=== PATIENT | female | born 1940 | race Caucasian/White ===

== ENCOUNTER 2020-03-23 13:48 | Emergency (ER) | payer OTHER ==
[2020-03-23 13:56] VITALS: TEMP 98.5; BMI 23.9
--- NOTE | 2020-03-23 14:59 | PDOC ---
History of Present Illness - General Chief Complaint: Revisit, Lab Variance Stated Complaint: POTASSIUM LOW Time Seen by Provider: 03/23/20 14:17 History Source: Patient Exam Limitations: No Limitations - History of Present Illness Initial Comments: 03/23/20 14:53 80F PMH HTN sent in from PCP for evaluation of lab abnormalities. Pt had bowel prep yesterday and was scheduled to have colonscopy this AM but canceled bc tachycardia. Was then told to follow up with PCP who did labs and EKG, subsequently found to have critically low potassium and ?elevated trop. Pt is asymptomatic and has no complaints. Denies f/c, cp/sob, n/v. Allergies reviewed w/ patient. Pt is on HCTZ. Past History - Medical History Allergies/Adverse Reactions: Allergies Allergy/AdvReac Type Severity Reaction Status Date / Time codeine AdvReac Verified 03/23/20 13:53 Penicillins AdvReac Verified 03/23/20 13:53 Home Medications: Ambulatory Orders Apremilast [Otezla] 30 mg PO BID 03/21/20 Hydrochlorothiazide 25 mg PO DAILY 03/21/20 L.acidoph,Paracasei, B.lactis [Probiotic] 1 each PO DAILY 03/21/20 Loratadine [Claritin] 10 mg PO DAILY 03/21/20 Anemia: No Asthma: No Cancer: No Cardiac Disorders: (LBBB) CVA: No COPD: No CHF: No Dementia: No Diabetes: No GI Disorders: Yes (COLON POLYPS - SESSILE SERRATED ADENOMAS, DIVERTICULOSIS, H EMORRHIODS) HTN: Yes Seizures: No Thyroid Disease: No - Surgical History Cholecystectomy: Yes - Reproductive History Is Patient Now?: No - Psycho-Social/Smoking History Smoking History: Never smoked Have you smoked in the past 12 months: No If you are a former smoker, when did you quit?: 40 YRS AGO - Substance Abuse Hx (Audit-C & DAST Scrn) How often the patient has a drink containing alcohol: Monthly or less How often the patient has six or more drinks on one occasion: Less than monthly Score: In Men: 4 or > Positive; In Women: 3 or > Positive: 2 Screen Result (Pos requires Nsg. Audit-10AR): Negative Review of Systems - Review of Systems Comments:: 03/23/20 22:23 CONSTITUTIONAL: Denies F / C HEENT: Denies headache, lightheadedness, dizziness, changes in vision / hearing, diplopia, blurry vision, sore throat, rhinorrhea RESP: Denies SOB, cough, orthopnea, ARELLANO CARD: Denies chest pain, palpitations GI: Denies N / V, abdominal pain, inability to tolerate PO : Denies dysuria, hematuria, frequency NEURO: Denies numbness, tingling, weakness MSK: Denies back pain SKIN: Denies rashes *Physical Exam - Vital Signs Last Vital Signs Temp Pulse Resp BP Pulse Ox 98.5 F 79 18 161/75 100 03/23/20 13:55 03/23/20 13:55 03/23/20 13:55 03/23/20 13:55 03/23/20 13:55 - Physical Exam 03/23/20 22:24 GEN: Well appearing, NAD, comfortable. AAOx3. HEENT: NC/AT, EOMI, PERRL. No facial asymmetry. Moist mucous membranes. Normal voice. Supple neck w/ FROM. CV: S1/S2, RRR, no m/r/g LUNG: CTAB, no wheezes, crackles, rales, rhonchi. GI: Soft, ndnt, +BS, no guarding, no rebound. No masses. Neg CVAT b/l. MSK: 2+ distal pulses. No LE edema. No obvious deformities of all extremities. SKIN: Warm, dry, no rashes appreciated. PSYCH: Normal mood and affect. pleasant. NEURO: Moving all extremities well. ED Treatment Course - LABORATORY CBC & Chemistry Diagram: 03/23/20 14:20 03/23/20 14:20 Medical Decision Making - Medical Decision Making 03/23/20 22:24 03/23/20 14:53 80F PMH HTN sent in by PCP for critical hypokalemia and possibly elevated trop. Had colonscopy canceled today. Pt has been asymptomatic. She is comfortable with HR on monitor of 80-90s. Will check labs and replete K as necessary. Pt is on HCTZ, a possible etiology for hypoK. Will eval for ACS and other metabolic abnormalities. 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 EKG 1418 demonstrating HR 118 in sinus tachycardia with Left ax deviation and LBBB which is unchanged from EKG obtained earlier this morning. When compared to EKG complete on 11/28/2009, retrieved on MUSE, there are new PACs but LBBB and LAD unchanged. 03/23/20 15:36 lab reviewed K 3.0 trop neg will replete K will repeat EKG 03/23/20 15:57 HR now 70-80s 03/23/20 16:[address] Cuevas at [facility] but no answer repeat EKG 1608 demonstrating resolved tachycardia, HR 80, LBBB, Left axis, sinus with PACs will DC home w/ close PCP f/u and cardiology f/u; return precautions 03/23/20 22:21 shortly before patient discharge, I discussed with Dr. Cuevas's office nurse senior benefits manager regarding findings and follow up plan. Message would be relayed to Dr. Cuevas who could call back with any questions. Appointment scheduled for Thursday; urged cardiology setup and follow up. Plan discussed with patient who was amenable and expressed understanding. Question and concerns were addressed. Return precautions provided. Discharge - Discharge Information Problems reviewed: Yes Clinical Impression/Diagnosis: Left bundle branch block (LBBB) on electrocardiogram, Hypokalemia Condition: Improved Disposition: HOME - Admission No - Follow up/Referral Referrals: Kyle Gomez MD [Primary Care Provider] - Finn Mancini MD [Staff Physician] - Rajendra Cuevas [Non Staff, Medical] - Call tomorrow - Patient Discharge Instructions Additional Instructions: Please follow up with your Primary Care Doctor in the next 3-5 days regarding this Emergency visit. We spoke to Dr. Cuevas's office and you have an appointment scheduled for Thursday03/26/20 at 3pm. Please call and confirm. We repleted your low potassium. Speak to your doctor regarding possible medication induced potassium loss. You need to follow up with Cardiology in the next 5-10 days. You can speak to your primary care doctor for a [facility] Telephone Supervisor. We are referring you to one of our cardiologists too. Continue taking your medications as prescribed. Return to the Emergency Department if you experience any new or concerning symptoms including but not limited to: - chest pain - palpitations - shortness of breath - Post Discharge Activity
[2020-03-23 15:03] LABS: BASO % 0.4 % (0-2.0); EOS % 0.7 % (0-4.5); HEMOGLOBIN 14.1 GM/dL (10.7-15.3); LYMPH % 19.9 % (8-40); MCH 28.9 pg (25.7-33.7); MCHC 33.5 g/dl (32.0-36.0); MEAN PLT VOLUME 9.3 fl (7.5-11.1); MONO % 7.4 % (3.8-10.2); NEUT % 71.6 % (42.8-82.8); PLATELET COUNT 214 K/MM3 (134-434); RBC 4.88 M/mm3 (3.60-5.2); WHITE BLOOD COUNT 7.2 K/mm3 (4.0-10.0)
--- NOTE | 2020-03-23 15:12 | PDOC ---
Attending Attestation - Resident Resident Name: DionicioJoão - ED Attending Attestation I have performed the following: I have examined & evaluated the patient, The case was reviewed & discussed with the resident, I agree w/resident's findings & plan - HPI HPI: 03/23/20 15:11 80F PMH HTN sent in from PCP for evaluation of lab abnormalities. Pt had bowel prep yesterday and was scheduled to have colonscopy this AM but canceled bc tachycardia. Was then told to follow up with PCP who did labs and EKG, subsequently found to have critically low potassium and ?elevated trop. Pt is asymptomatic and has no complaints. Denies f/c, cp/sob, n/v. Allergies reviewed w/ patient. Pt is on HCTZ. - Physicial Exam PE: 03/23/20 15:11 Agree with the resident's HPI and PE as documented in the electronic medical record. NAD, well appearing, EOMI, PERRL, nl conjunctiva, anicteric; neck supple. lungs clear, RRR, abdomen soft nontender. no rebound, guarding. Back nontender. BAUER x4, no focal neuro deficits. No peripheral edema. normal color for ethnicity, WWP. - Medical Decision Making 03/23/20 15:12 Vital Signs Temp Pulse Resp BP Pulse Ox 98.5 F 79 18 161/75 100 03/23/20 13:55 03/23/20 13:55 03/23/20 13:55 03/23/20 13:55 03/23/20 13:55 03/23/20 15:47 Vital signs reviewed, mildly hypertensive, intermittent tachy, but remains stable in the range of 80-95 no symptoms reviewed prior labs from outpatient, no trop done, labs with mild hypoK will replete given IVF remainder of labs wnl, no anemia esme po intake and potassium , no n/v, no abdominal pain. stable ekg compared to 2009 with LBBB, nonspecific t wave abnormalities, neg for sgarbossa's criteria. also without cp or sob, unlikely ACS or cardiac etiology transfer tech call to her primary doctor at [facility], Dr Cuevas with clinical update and ekg 03/23/20 16:44 Pt to be discharged in stable condition. Patient and family made aware of clinical impression, treatment recommendations and disposition plan, return precautions discussed (including but not limited to new or persistent/worsening symptoms, pain, fevers, or signs of infection, chest pain, respiratory distress, inability to tolerate oral intake, dehydration, syncope, or neurologic changes). Follow up with PMD and/or specialist as recommended, follow up information provided, take medications as instructed for duration of time. continue with supportive care, avoid triggers and precipitants. All questions answered to patient's satisfaction and expressed understanding and comfort with this. At the time of discharge, the patient is alert, clinically improved, tolerating po and verbalizes understanding of instructions, satisfied with the care received and felt comfortable with the plan. Patient does not suffer from an acute life- threatening medical condition at this time and is safe for outpatient follow- up. Heart Score/ECG Review #1 ECG reviewed & interpreted by me at: 14:20 General ECG Interpretation: Sinus Rhythm, Normal Rate 03/23/20 15:46 EKG sinus tachycardia 118 bpm, left bundle branch block is noted, wide QRS, appropriate discordant changes, no concordant changes., Nonspecific T wave abnormalities - similar to prior ekg 14:18 #2 ECG reviewed & interpreted by me at: 16:10 General ECG Interpretation: Sinus Rhythm, Normal Rate, Normal Intervals Compared to previous ECG there are: No significant change 03/23/20 16:15 EKG normal sinus rhythm 80 bpm with LBBB, neg sgarbossa's criteria no discordant changes above 5mm in precordial leads, no concordant changes. Discharge - Discharge Information Problems reviewed: Yes Clinical Impression/Diagnosis: Left bundle branch block (LBBB) on electrocardiogram, Hypokalemia Condition: Improved Disposition: HOME - Admission No - Follow up/Referral Referrals: Finn Mancini MD [Staff Physician] - Kyle Gomez MD [Primary Care Provider] - Rajendra Cuevas [Non Staff, Medical] - Call tomorrow - Patient Discharge Instructions Additional Instructions: Please follow up with your Primary Care Doctor in the next 3-5 days regarding this Emergency visit. We spoke to Dr. Cuevas's office and you have an appointment scheduled for Thursday03/26/20 at 3pm. Please call and confirm. We repleted your low potassium. Speak to your doctor regarding possible medication induced potassium loss. You need to follow up with Cardiology in the next 5-10 days. You can speak to your primary care doctor for a [facility] Mandarin Chinese Teacher. We are referring you to one of our cardiologists too. Continue taking your medications as prescribed. Return to the Emergency Department if you experience any new or concerning symptoms including but not limited to: - chest pain - palpitations - shortness of breath - Post Discharge Activity
[2020-03-23 15:32] LABS: ALBUMIN 3.7 g/dl (3.4-5.0); ALK PHOS 130 U/L (45-117); ANION GAP 9 MMOL/L (8-16); BLOOD UREA NITROGEN 10.8 mg/dL (7-18); CALCIUM 9.4 mg/dL (8.5-10.1); CHLORIDE 96 mmol/L (98-107); CO2 33 mmol/L (21-32); CREATININE 0.8 mg/dL (0.55-1.3); GLUCOSE,RANDOM 87 mg/dL (74-106); MAGNESIUM 2.4 mg/dL (1.8-2.4); SGOT/AST 19 U/L (15-37); SGPT/ALT 17 U/L (13-61); SODIUM 138 mmol/L (136-145); TOT PROT 7.3 g/dl (6.4-8.2)
[2020-03-23] MEDS ORDERED: POTASSIUM CHLORIDE TABS 20 MEQ TABLET.ER (FP) PO ONE (15:34)
[2020-03-23] MEDS ORDERED: POTASSIUM CHLORIDE TABS 10 MEQ TABLET.ER (FP) ONE (15:37)
[2020-03-23 16:51] VITALS: BP 128/89; PULSE 82
--- NOTE | 2020-03-26 22:01 | EKG ---
Test Reason : Blood Pressure : / mmHG Vent. Rate : 080 BPM Atrial Rate : 072 BPM P-R Int : 146 ms QRS Dur : 154 ms QT Int : 460 ms P-R-T Axes : 019 -34 124 degrees QTc Int : 530 ms SINUS RHYTHM WITH PREMATURE ATRIAL COMPLEXES POSSIBLE LEFT ATRIAL ENLARGEMENT LEFT AXIS DEVIATION LEFT BUNDLE BRANCH BLOCK ABNORMAL ECG WHEN COMPARED WITH ECG OF 23-MAR-2020 14:18, NO SIGNIFICANT CHANGE WAS FOUND Confirmed by JACEK BALDWIN, AUSTIN ([id number]) on 03/26/2020 10:00:51 PM Referred By: Confirmed By:AUSTIN READ MD
--- NOTE | 2020-03-26 22:02 | EKG ---
Test Reason : Blood Pressure : / mmHG Vent. Rate : 118 BPM Atrial Rate : 090 BPM P-R Int : 130 ms QRS Dur : 142 ms QT Int : 406 ms P-R-T Axes : 015 -34 121 degrees QTc Int : 569 ms SINUS RHYTHM WITH PREMATURE ATRIAL COMPLEXES POSSIBLE LEFT ATRIAL ENLARGEMENT LEFT AXIS DEVIATION LEFT BUNDLE BRANCH BLOCK ABNORMAL ECG WHEN COMPARED WITH ECG OF 23-MAR-2020 08:13, VENT. RATE HAS INCREASED BY 45 BPM Confirmed by AUSTIN READ MD ([id number]) on 03/26/2020 10:01:54 PM Referred By: Confirmed By:AUSTIN READ MD
== END 2020-03-23 16:30 | disposition home or self-care (01) ==
LOC: JER 13:48
DX: I44.7 Left bundle-branch block, unspecified (principal); E87.6 Hypokalemia
CPT/HCPCS: 36415; 71045-TC-FY; 80053; 82550; 83735; 84484; 85025; 93005; 93010; 99285-25

== ENCOUNTER → 2020-03-23 | Day surgery (SDC) | payer OTHER ==
[2020-03-21 14:20] VITALS: BMI 24.3
[2020-03-23 07:57] VITALS: TEMP 98.2
[2020-03-23 09:23] VITALS: BP 148/65; PULSE 126
--- NOTE | 2020-03-23 10:43 | EKG ---
Test Reason : Blood Pressure : / mmHG Vent. Rate : 073 BPM Atrial Rate : 073 BPM P-R Int : 146 ms QRS Dur : 150 ms QT Int : 484 ms P-R-T Axes : 011 -41 119 degrees QTc Int : 533 ms SINUS RHYTHM WITH PREMATURE ATRIAL COMPLEXES LEFT AXIS DEVIATION LEFT BUNDLE BRANCH BLOCK ABNORMAL ECG WHEN COMPARED WITH ECG OF 28-NOV-2009 09:28, PREMATURE ATRIAL COMPLEXES ARE NOW PRESENT Confirmed by JOE BALDWIN, ANANTH ([id number]) on 03/23/2020 10:43:00 AM Referred By: Maxx William Confirmed By:ANANTH DIAZ MD
== END | disposition home or self-care (01) ==
LOC: JASU-ENDO 05:03
PROVIDERS: ATTEND Internal Medicine Gastroenterology
DX: Z53.8 Procedure and treatment not carried out for other reasons (principal)
CPT/HCPCS: 93005; 93010